=== PATIENT | female | born 1950 | race Caucasian/White ===

== ENCOUNTER → 2024-06-25 14:10 | Outpatient (REF) | payer MEDICARE, OTHER, SELFPAY | LOC: HWRAD 14:10 | PROVIDERS: ATTENDING PHYSICIAN Internal Medicine Critical Care Medicine | DX: J44.9 Chronic obstructive pulmonary disease, unspecified (principal) | CPT/HCPCS: 71046 ==

== ENCOUNTER 2025-02-17 06:27 | Day surgery (SDC) | payer MEDICARE, OTHER, SELFPAY ==
[2025-02-17 08:05] VITALS: BMI 27.7
[2025-02-17 08:06] VITALS: BP 141/87
[2025-02-17] MEDS: ALCAINE 0.5% EYE DROPS 4 DROP OPHTH (08:13)
[2025-02-17] MEDS: PRED FORTE 1% EYE DROPS 3 DROP OPHTH (08:13)
[2025-02-17] MEDS: POLYTRIM OPHTHALMIC SOLUTION 3 DROP OPHTH (08:14)
[2025-02-17] MEDS: MYDRIACYL 3 DROP OPHTH (08:16)
[2025-02-17] MEDS: CYCLOGYL 1% EYE DROPS 3 DROP OPHTH (08:16)
[2025-02-17] MEDS: NEO-SYNEPHRINE 2.5% OPH SOL. 3 DROP OPHTH (08:16)
[2025-02-17] MEDS: AKTEN OPHTHALMIC GEL 1 ML OPHTH (08:17)
[2025-02-17] MEDS: ACUVAIL 3 DROPS OPHTH (08:17)
[2025-02-17] MEDS: NORMOSOL-R/PLASMALYTE-A 1000 IV (08:18)
[2025-02-17 09:17] VITALS: BP 161/81
== END 2025-02-17 10:05 | disposition home or self-care (01) ==
LOC: SDS 06:27
PROVIDERS: ATTENDING PHYSICIAN Ophthalmology
DX: H25.12 Age-related nuclear cataract, left eye (principal)
CPT/HCPCS: 66984; V2632

== ENCOUNTER 2025-03-03 06:25 | Day surgery (SDC) | payer MEDICARE, OTHER, SELFPAY ==
[2025-03-03] MEDS: ALCAINE 0.5% EYE DROPS 4 DROP OPHTH (07:47)
[2025-03-03] MEDS: POLYTRIM OPHTHALMIC SOLUTION 3 DROP OPHTH (07:49)
[2025-03-03] MEDS: PRED FORTE 1% EYE DROPS 3 DROP OPHTH (07:49)
[2025-03-03] MEDS: MYDRIACYL 3 DROP OPHTH (07:50)
[2025-03-03] MEDS: NEO-SYNEPHRINE 2.5% OPH SOL. 3 DROP OPHTH (07:50)
[2025-03-03] MEDS: CYCLOGYL 1% EYE DROPS 3 DROP OPHTH (07:50)
[2025-03-03 07:51] VITALS: BMI 27.3
[2025-03-03 07:52] VITALS: BMI 27.3
[2025-03-03 07:53] VITALS: BP 130/75
[2025-03-03] MEDS: ACUVAIL 3 DROPS OPHTH (07:56)
[2025-03-03] MEDS: NORMOSOL-R/PLASMALYTE-A 1000 IV (07:57)
[2025-03-03] MEDS: AKTEN OPHTHALMIC GEL 1 ML OPHTH (08:00)
[2025-03-03 09:00] VITALS: BP 134/82
== END 2025-03-03 09:30 | disposition home or self-care (01) ==
LOC: SDS 06:25
PROVIDERS: ATTENDING PHYSICIAN Ophthalmology
DX: H25.11 Age-related nuclear cataract, right eye (principal)
CPT/HCPCS: 66984; V2632